=== PATIENT | male | born 1945 | race Caucasian/White ===

== ENCOUNTER → 2016-11-09 11:07 | Outpatient (CLI) | payer MEDICARE, BC ==
[2014-09-09 07:24] VITALS: BMI 38.8
[~2016-11-09 11:07] MED LIST: ASPIRIN325 MG PO; ASPIRIN81 MG PO; BAYER CHEWABLE81 MG PO; BRILINTA90 MG PO; COLACE100 MG PO; COUMADIN10 MG PO; FISH OIL 1,2001 CAP PO; FLOMAX0.4 MG PO; LASIX40 MG PO; LISINOPRIL5 MG PO; MULTIPLE VITAMI1 TA1 PO; MYRBETRIQ25 MG PO; PRILOSEC20 MG PO; ZANTAC150 MG PO; ZYRTEC10 MG PO
== END | disposition home or self-care (01) ==
LOC: D.CT 11:07
DX: R10.9 Unspecified abdominal pain (principal)

== ENCOUNTER 2017-01-09 10:45 | Outpatient (CLI) | payer MEDICARE, BC ==
[~2017-01-09] VITALS: Ht 180.3 cm; Wt 124.5 kg
--- NOTE | ~2017-01-09 | HEMODYNAMI ---
PATIENT:ARMOND MCCAIN MEDICAL RECORD: [id number] : 49 LOCATION:D.CAT ADMISSION DATE: 01/09/17 Generatedon:01/09/201714:10 Patient name: ARMOND MCCAIN Patient #: [id number] SSN: : Date of study: 01/09/2017 Page: Of Hemodynamic Procedure Report Patient Data Patient Demographics Procedure consent was obtained First Name: ARMOND Gender: Male Last Name: ADÁN : 1945 Middle Initial: D Age: 71 year(s) Patient #: [id number] Race: Unknown Additional ID: [id number] Contact details Address: [address] [place] [address] State: [place] City: [place] Zip code: [address] Past Medical History Allergies: No known allergies Admission Admission Data Admission Date: 01/09/2017 Admission Time: 10:45 Lab Results Lab Result Date: 01/09/2017 Lab Result Time: 11:34 Biochemistry Name Units Result Min Max BUN mg/dl 18 --(---*)-- 7 18 Creatinine mg/dl 1.3 --(---*)-- 0.6 1.3 CBC Name Units Result Min Max Hematocrit % 38.3 *-(----)-- 42 54 Hemoglobin g/dl 12.2 *-(----)-- 13.5 17.5 Procedure Procedure Types Cath Procedure Diagnostic Procedure [facility] w/Coronaries PCI Procedure Coronary Stent Initial Miscellaneous Procedures Moderate Sedation up to 30 minutes Procedure Description Procedure Date Procedure Date: 01/09/2017 Procedure Start Time: 13:38 Procedure End Time: 14:07 Procedure Staff Name Function Tere Rajput RN Nurse Estevan Larkin MD Performing Physician Timoteo Brooks RT Monitor Danya Oh RT Monitor Procedure Data Cath Procedure Fluoroscopy Diagnostic fluoroscopy Total fluoroscopy Time: 7.9 time: 7.9 min min Diagnostic fluoroscopy Total fluoroscopy dose: dose: 2013 mGy 2014 mGy Contrast Material Contrast Material Type Amount (ml) Isovue 300 178 Entry Location Entry Primary Successful Side Size Upsize Upsize Entry Closure Diallo ccessful Closure Location (Fr) 1 (Fr) 2 (Fr) Remarks Device Remarks Radial Right 6 Fr Mechanical artery Short Compression Estimated blood loss: 10 ml Diagnostic catheters Device Type Used For End Catheter Placement Terumo 5Fr Trent[place] 110cm LV Angiography catheter Terumo 5Fr [place] 110cm Left Coronary catheter Angiography Terumo 5Fr [place] 110cm Right Coronary catheter Angiography Procedure Complications No complications Procedure Medications Medication Administration Route Dosage Oxygen NC 2 l/min Lidocaine 2% added to field 20 Heparin Flush Bag added to field 2 bags (1000units/500ml NS) 0.9% NaCl I.V. 100 ml/hr Versed I.V. 1 mg Fentanyl I.V. 50 mcg Radial Cocktail I.A. 1 syringe (Verapomil 2mg/Nitro 400mcg/Heparin 1500units) Versed I.V. 1 mg Fentanyl I.V. 50 mcg Heparin Bolus I.V. 35541 units Versed I.V. 1 mg Fentanyl I.V. 50 mcg Nitroglycerin IC/IA I.C. 100 mcg Brilinta P.O. 180 mg Hemodynamics Rest HGB: 12.2 (g/dl) Heart Rate: 51 (bpm) Pressure Samples Time Site Value (mmHg) Purpose Heart Use Rate(bpm) 13:40 LV 128/0,13 EDP 52 13:41 LV 127/1,18 Pullback 58 13:41 AO 109/59(77) Pullback 58 Gradients Valve Time Site 1 Site 2 Mean SEP/DFP Peak To Heart Use (mmHg) (sec/min) Peak Rate (mmHg) (bpm) Aortic 13:41 LV AO 8 5 18 58 127/1,18 109/59(77) Calculations Valve P-P Mean Valve Index Valve Source Name Gradient Area Flow (cm2) Aortic 18 8 18 8 Snapshots Pre Cath Intra NCS Post Cath Vital Signs Time Heart Resp SPO2 NIBP (mmHg) Rhythm Pain Sedation Rate (ipm) (%) Status Level (bpm) 13:31:21 53 16 98 139/61(108) NSR 0 (11) 10(A) , No pain 13:35:43 50 16 96 133/69(101) NSR 0 (11) 10(A) , No pain 13:40:01 54 14 99 111/64(96) NSR 0 (11) 9(A) , No pain 13:45:25 52 16 98 129/62(104) NSR 0 (11) 9(A) , No pain 13:49:49 52 16 98 135/66(100) NSR 0 (11) 9(A) , No pain 13:54:11 57 16 99 127/66(109) NSR 0 (11) 9(A) , No pain 13:59:20 54 17 98 116/68(103) NSR 0 (11) 9(A) , No pain 14:03:36 55 16 98 132/71(104) NSR 0 (11) 10(A) , No pain 14:07:46 53 6 98 116/68(107) NSR 0 (11) 10(A) , No pain Medications Time Medication Route Dose Verified Delivered Reason Note s Effectiveness by by 13:29:47 Oxygen NC 2 l/min Estevan Buffie used for Balta Rajput RN procedure 13:29:54 Lidocaine 2% added 20ml Estevan Estevan used for to vial Balta Larkin MD procedure field 13:30:03 Heparin Flush added 2 bags Estevan Estevan used for Bag to Balta Larkin MD procedure (1000units/500ml field NS) 13:32:08 0.9% NaCl I.V. 100 Estevan Buffie Per physician ml/hr Balta Rajput RN 13:33:16 Versed I.V. 1 mg Estevan Buffie for sedation Balta Rajput RN 13:33:22 Fentanyl I.V. 50 mcg Estevan Buffie for sedation Balta Rajput RN 13:39:29 Radial Cocktail I.A. 1 Estevan Estevan for (Verapomil syringe Balta Larkin MD vasodilation 2mg/Nitro 400mcg/Hepari 13:40:03 Versed I.V. 1 mg Estevan Buffie for sedation Balta Rajput RN 13:40:07 Fentanyl I.V. 50 mcg Estevan Buffie for sedation Balta Rajput RN 13:48:18 Heparin Bolus I.V. 12,000 Estevan Buffie for veri fied units Balta Rajput RN anticoagulation with dr larkin 13:53:25 Versed I.V. 1 mg Estevan Buffie for sedation Balta Rajput RN 13:53:29 Fentanyl I.V. 50 mcg Estevan Carranza for sedation Balta Rajput RN 14:00:06 Nitroglycerin I.C. 100 mcg Estevan Estevan for IC/IA Balta Larkin MD vasodilation 14:07:14 Brilinta P.O. 180 mg Estevan Tere for Balta Rajput RN antiplatelet therapy Procedure Log Time Note 13:08:24 Diagnostic Cath status Elective 13:08:25 Horace Ying RT(R) sent for patient. Start room use. 13:08:26 Time tracking: Regular hours 13:08:29 Plan of Care:Hemodynamics will remain stable., Cardiac rhythm will remain stable., Comfort level will be maintained., Respiratory function will remain adequate., Patient/ family verbilizes understanding of procedure., Procedure tolerated without complication., Recovers from procedure without complications.. 13:09:38 H&P Date Dictated: 01/09/2017 Within 30 days and on chart., H&P Addendum completed by physician on day of procedure. (MUST COMPLETE FOR ALL OUTPATIENTS). 13:15:25 Lab Result : Hemoglobin 12.2 g/dl 13:15:25 Lab Result : Hematocrit 38.3 % 13:15:25 Lab Result : BUN 18 mg/dl 13:15:25 Lab Result : Creatinine 1.3 mg/dl 13:15:31 Warm blankets applied, and ale hugger turned on for patient comfort. 13:15:31 Patient received from Pre/Post Procedure Room to CCL 2 Alert and oriented. Tansferred to table in Supine position. 13:15:32 Correct patient and procedure confirmed by team. 13:15:33 ECG and BP/O2 sat monitors applied to patient. 13:15:34 Signed procedure consent form obtained from patient. 13:15:36 Pre-procedure instructions explained to patient. 13:15:38 Pre-op teaching completed and patient verbalized understanding. 13:15:40 Family in waiting room. 13:15:41 Patient NPO since Midnight. 13:15:47 Patient allergic to No known allergies 13:29:00 Is the patient allergic to Iodine/contrast media? No. 13:29:24 Is patient on blood thinner?No 13:29:42 Patient diabetic? No. 13:29:47 Oxygen 2 l/min NC was administered by Tere Rajput RN; used for procedure; 13:29:54 Lidocaine 2% 20ml vial added to field was administered by Estevan Larkin MD; used for procedure; 13:30:03 Heparin Flush Bag (1000units/500ml NS) 2 bags added to field was administered by Estevan Larkin MD; used for procedure; 13:30:05 Previous problem with sedation/anesthesia? No ? 13:30:08 Vital chart was started 13:30:12 Snore? Yes 13:30:14 Sleep apnea? No 13:30:15 Opens mouth fully? Yes 13:30:15 Deviated septum? No 13:30:16 Sticks out tongue? Yes 13:30:19 Airway obstruction? No ? 13:30:23 Dentures? No ? 13:30:29 Pre procedure: right dorsailis pedis pulse 2+ Normal; easily identifiable; not easily obliterated 13:30:31 Modified Donnell's test Ulnar < 7 seconds 13:30:33 Patient pain scale 0/10 ?. 13:30:37 IV patent on arrival in left hand with 0.9% NaCl at [facility]. 13:30:42 Lab results completed and on chart. 13:30:45 Alarms reviewed by R. N. 13:30:45 Right Radial & Right Groin area was prepped with chlora-prep and draped in sterile fashion 13:30:46 Sharps counted by scrub and verified by R.N. 13:30:52 Use device set Radial Dx 13:30:53 Medline Cath Pack opened to sterile field. 13:30:53 Acist Syringe opened to sterile field. 13:30:54 Terumo 6Fr Slender Glidesheath opened to sterile field. 13:30:54 Bag Decanter opened to sterile field. 13:30:55 Acist Manifold opened to sterile field. 13:30:55 Acist Hand Control opened to sterile field. 13:30:55 St Tyler 260cm J .035 wire opened to sterile field. 13:30:56 MBrace Wrist Support opened to sterile field. 13:30:56 Tegaderm 4 x 4 opened to sterile field. 13:32:08 0.9% NaCl 100 ml/hr I.V. was administered by Tere Rajput RN; Per physician; 13:32:10 Cook 21G 4cm Radial Needle opened to sterile field. 13:32:14 Final Timeout: patient, procedure, and site verified with staff and physician. All members of the team are in agreement. 13:32:16 Right Radial & Right Groin site verified by team. 13:32:18 Physical assessment completed. ASA score P 2 - A patient with mild systemic disease as per Estevan Larkin MD. 13:32:20 Sedation plan: IV Moderate Sedation Versed, Fentanyl 13:32:35 Baseline sample Acquired. 13:33:16 Versed 1 mg I.V. was administered by Tere Rajput RN; for sedation; 13:33:22 Fentanyl 50 mcg I.V. was administered by Tere Rajput RN; for sedation; 13:38:53 Full Disclosure recording started 13:38:53 Procedure started. 13:38:59 Local anesthetic to right radial artery with Lidocaine 2% by Estevan Larkin MD.INITIAL ACCESS ONLY 13:39:07 A 6 Fr Short sheath was inserted into the Right Radial artery 13:39:29 Radial Cocktail (Verapomil 2mg/Nitro 400mcg/Heparin 1500units) 1 syringe I.A. was administered by Estevan Larkin MD; for vasodilation; 13:40:03 Versed 1 mg I.V. was administered by Tere Rajput RN; for sedation; 13:40:07 Fentanyl 50 mcg I.V. was administered by Tere Rajput RN; for sedation; 13:40:21 A Terumo 5Fr Trent[place] 110cm catheter was advanced over the wire and used for LV Angiography. 13:41:03 LV gram done using SIU 13:41:05 LV hemodynamics recorded. 13:41:07 Injector settings: Ml/sec: 5, Volume: 15, 13:41:11 EF : 55 % 13:41:53 A Terumo 5Fr Trent[place] 110cm catheter was advanced over the wire and used for Left Coronary Angiography. 13:44:16 A Terumo 5Fr [place] 110cm catheter was advanced over the wire and used for Right Coronary Angiography. 13:44:54 Catheter removed. 13:44:55 RelayFoods BasixCompak Inflation Kit opened to sterile field. 13:44:56 High Pressure Extension Tubing (Balta) opened to sterile field. 13:44:57 Calles BMW [place] 2 J-tip 300cm 0.014 guide wir opened to sterile field. 13:46:53 Cordis 6FR XBLAD 3.5 guide catheter opened to sterile field. 13:48:18 Heparin Bolus 12,000 units I.V. was administered by Tere Rajput RN; for anticoagulation; verified with dr larkin 13:48:49 6 Fr XBLAD 3.5 guide catheter was inserted over the wire 13:49:35 BMW wire advanced. 13:53:22 Inflation number: 1 A StepOneec Rx 2.0 x 15 balloon was prepped and advanced across the 1st Ob Salome, then inflated to 8 KAMRAN for 0:14 (min:sec). 13:53:25 Versed 1 mg I.V. was administered by Tere Rajput RN; for sedation; 13:53:29 Fentanyl 50 mcg I.V. was administered by Tere Rajput RN; for sedation; 13:54:09 Balloon removed over the wire. 13:57:44 Inflation Number: 2 A [employer] Automationtronic Integrity 2.25 X 12 stent was prepped and advanced across the 1st Ob Salome. The stent was deployed at 10 KAMRAN for 0:21 (min:sec). 13:58:42 Stent catheter was removed intact over wire. 14:00:06 Nitroglycerin IC/IA 100 mcg I.C. was administered by Estevan Larkin MD; for vasodilation; 14:01:12 Guide catheter removed. 14:01:12 Wire removed. 14:01:53 Sheath removed intact; hemostasis achieved with Mechanical Compression to the Right Radial artery. 14:02:00 Procedure ended.(Physican Out) 14:02:51 Fluoroscopy time 07.90 minutes. 14:02:55 Fluoroscopy dose: 2013 mGy 14:02:55 Flurop Dose total: 2013 14:03:27 Contrast amount:Isovue 300 178ml. 14:03:28 Sharps counted by scrub and verified by R.N. 14:03:33 TR band inflated with 13cc of air. 14:03:34 Insertion/operative site no bleeding no hematoma. 14:03:42 Post right radial artery:stable, clean and dry 14:03:43 Post Procedure Pulses reassessed and unchanged 14:03:48 Post-procedure physical assessment completed. ASA score P 2 - A patient with mild systemic disease as per Estevan Larkin MD. 14:03:51 Post procedure rhythm: unchanged. 14:03:53 Estimated blood loss: 10 ml 14:03:54 Post procedure instruction explained to patient.Patient verbalizes understanding. 14:03:55 Patient needs reinforcement of post procedure teaching. 14:04:10 Procedure type changed to Cath procedure, Diagnostic procedure, LHC, LHC w/Coronaries, PCI procedure, Coronary Stent Initial, Miscellaneous Procedures, Moderate Sedation up to 30 minutes 14:04:17 Procedure Complication : No complications 14:04:18 See physician's report for complete and final results. 14:04:44 Terumo TR Band Standard opened to sterile field. 14:05:50 Procedure and supply charges have been captured, reviewed, submitted and are correct. 14:07:14 Brilinta 180 mg P.O. was administered by Tere Rajput RN; for antiplatelet therapy; 14:07:25 Vital chart was stopped 14:07:27 Report given to Pre/Post Procedure Room. 14:07:30 Patient transfered to Pre/Post Procedure Room with Stretcher. 14:07:38 Full Disclosure recording stopped 14:07:38 Procedure ended. 14:07:43 End room use (Document Last) Intervention Summary Intervention Notes Time ActionType Lesion and Equipment Action# Pressure Duration Attributes Used 13:53:22 Inflate 1st Ob [facility] Mozec Rx 1 8 00:14 balloon 2.0 x 15 balloon 13:57:44 Place stent 1st Ob [facility] Medtronic 2 10 00:21 Integrity 2.25 X 12 stent Device Usage Item Name Manufacture Quantity Catalog Hospital Part Current Minimal Lot# / Number Charge Number Stock Stock Serial# Code Acist Acist 1 75713 [id number] 379711 613339 20 Syringe Medical Systems Inc Medline Cardinal 1 [id number] 698713 96583 805793 5 Cath Pack Health Bag Microtek 1 2001S 552646 95773 151576 5 LLLer Inc. Terumo 6Fr Terumo 1 [id number] 480557 612911 032139 [address] [place] [address] [place] 1 311869 395235 235158 123729 30 260cm J .035 wire Acist Hand Acist 1 16913 432057 677655 472164 5 Control Medical Systems Inc Acist Acist 1 31545 972640 585012 658050 5 Green Is Good Medical Systems Inc Tegaderm 4 3M 1 1626W 578682 412528 486462 5 x 4 MBrace Advanced 1 140-0250-00 813869 08821 680228 5 Wrist Vascular Support Dynamics Cook 21G Cook Medical 1 [id number] 837797 908543 510706 5 4cm Radial Needle Terumo 5Fr Terumo 1 40-0029 461634 753527 527384 5 [place] 110cm catheter Merit Merit 1 [id number] 571708 308458 725917 15 BasixCompak Medical Inflation Kit High Merit 1 [id number] 480745 48237 608309 10 Pressure Medical Extension Tubing (Larkin) Calles BMW Calles 1 [id number] 468835 086154 192176 5 [place] 2 Vascular J-tip 300cm 0.014 guide wir Cordis 6FR Cardinal 1 [id number] 297011 767970 484251 10 XBLAD 3.5 Health guide catheter Mozec Rx Cardinal 1 [id number] 405594 71663 547007 5 UMOA67 2.0 x 15 Health balloon Medtronic Medtronic 1 [id number] 708704 537816 2 [id number] Integrity 2.25 X 12 stent Terumo TR Terumo 1 [id number] 431214 754147 409014 40 Band Standard Signature Audit Taylor Stage Time Signature Unsigned Intra-Procedure 01/09/2017 Danya 2:10:05 PM Counts RT(R) Signatures Monitor : Timoteo Brokos RT Signature : Date : Time : Monitor : Danya Signature : Counts RT Date : Time : [facility] [address] [place] [address]
[2017-01-09 11:37] VITALS: BP 124/63; Ht 180.3 cm; Wt 124.5 kg
[2017-01-09 11:38] LABS: BASOPHILS 0.3 % (0-2); EOSINOPHILS 4.8 % (0-7); HEMATOCRIT 38.3 % (42.0-54.0); HEMOGLOBIN 12.2 g/dL (13.5-17.5); IMMATURE GRANULOCYTES 0.3 % (0-5); LYMPHOCYTES 27.1 % (15-50); MCH 24.1 pg (26.0-34.0); MCHC 31.9 g/dL (31.0-37.0); MCV 75.5 fL (80.0-100.0); MEAN PLATELET VOLUME 8.9 fL (7.4-10.4); MONOCYTES 8.7 % (2-11); NEUTROPHILS 58.8 % (40-80); PLATELET COUNT 214 10x3/uL (130-400); RBC 5.07 10x6/uL (4.20-6.10); RDW 16.8 % (11.5-14.5)
[2017-01-09 11:47] LABS: ANION GAP 10.6 mmol/L (8-16); CALCIUM 9.1 mg/dL (8.5-10.1); CREATININE - SERUM 1.3 mg/dL (0.6-1.3); INR 1.02 (0.85-1.17); POTASSIUM - SERUM 3.6 mmol/L (3.5-5.1); PROTIME 13.3 SECONDS (11.6-15.0)
[2017-01-09] MEDS ORDERED: ZIAC 10-6.25 MG1 TAB PO (11:49)
[2017-01-09] MEDS ORDERED: BRILINTA90 MG PO (14:24)
--- NOTE | 2017-01-09 14:35 | NUR ---
2L NC, NO RESP DISTRESS NOTED. RIGHT WRIST TR BAND CDI, NO BLEEDING OR HEMATOMA NOTED. NO C/O CHEST PAIN OR NAUSEA. VSS. SANDWICH TRAY AND DRINK GIVEN.
--- NOTE | 2017-01-09 15:05 | NUR ---
2L NC, NO RESP DISTRESS NOTED. RIGHT WRIST TR BAND CDI, NO BLEEDING OR HEMATOMA NOTED. NO C/O CHEST PAIN OR NAUSEA. VSS. WILL CONTINUE TO MONITOR.
--- NOTE | 2017-01-09 15:20 | NUR ---
RIGHT WRIST TR BAND CDI, NO BLEEDING OR HEMATOMA NOTED. 2L NC, NO RESP DISTRESS. NO C/O CHEST PAIN. VSS. CALL LIGHT WITHIN REACH.
--- NOTE | 2017-01-09 15:50 | NUR ---
RIGHT WRIST TR BAND CDI, NO BLEEDING OR HEMATOMA NOTED. 2L NC, NO RESP DISTRESS NOTED. VSS. NO NEEDS VOICED AT THIS TIME. WILL CONTINUE TO MONITOR.
--- NOTE | 2017-01-09 16:20 | NUR ---
RESTING QUIETLY. DENIES ANY NEEDS. VSS. RIGHT WRIST TR BAND CDI, NO BLEEDING OR HEMATOMA NOTED. CALL LIGHT WITHIN REACH.
--- NOTE | 2017-01-09 17:30 | NUR ---
2CC OF AIR REMOVED FROM TR BAND, NO BLEEDING NOTED.
--- NOTE | 2017-01-09 17:43 | NUR ---
3CC OF AIR REMOVED FROM TR BAND, NO BLEEDING NOTED.
--- NOTE | 2017-01-09 18:01 | NUR ---
3CC OF AIR REMOVED FROM TR BAND, NO BLEEDING NOTED.
--- NOTE | 2017-01-09 18:24 | NUR ---
2CC OF AIR REMOVED FROM TR BAND, NO BLEEDING NOTED. LEFT WRIST PIV D/C'D WITH CATHETER INTACT, BAND AID INTACT. UP TO BEDSIDE TO GET DRESSED.
--- NOTE | 2017-01-09 18:30 | NUR ---
REMAINING AIR REMOVED FROM TR BAND, DRESSING TO SITE. DISCHARGE INSTRUCTIONS GIVEN, VERBALIZED UNDERSTANDING.
--- NOTE | 2017-01-09 18:42 | NUR ---
TAKEN OUT VIA WHEELCHAIR BY CATH ORNAMENTAL IRON WORKER APPRENTICE. LEFT FACILITY WITH FAMILY MEMBER AND ALL PERSONAL BELONGINGS.
== END 2017-01-09 18:42 | disposition home or self-care (01) ==
LOC: D.CATH 10:45
PROVIDERS: Internal Medicine Cardiovascular Disease
DX: I25.119 Atherosclerotic heart disease of native coronary artery with unspecified angina pectoris (principal); Z95.5 Presence of coronary angioplasty implant and graft; I10 Essential (primary) hypertension; Z86.73 Personal history of transient ischemic attack (TIA), and cerebral infarction without residual deficits; Z85.46 Personal history of malignant neoplasm of prostate; Z79.82 Long term (current) use of aspirin; Z79.01 Long term (current) use of anticoagulants; Z79.899 Other long term (current) drug therapy; Z87.891 Personal history of nicotine dependence; Z01.812 Encounter for preprocedural laboratory examination

== ENCOUNTER → 2017-10-28 09:20 | Outpatient (CLI) | payer MEDICARE, BC ==
[2017-01-09 11:37] VITALS: BMI 38.3
[~2017-10-28 09:20] MED LIST changes: +ASPIRIN EC325 M1 PO; -ASPIRIN81 MG PO; +FERROUS SULFAT325 MG PO; +REQUIP1 MG PO; +ZIAC 10-6.25 MG1 TAB PO
[2017-10-28 09:48] LABS: BASOPHILS 0.8 % (0-2); HEMATOCRIT 36.9 % (42.0-54.0); HEMOGLOBIN 10.7 g/dL (13.5-17.5); IMMATURE GRANULOCYTES 0.2 % (0-5); LYMPHOCYTES 24.8 % (15-50); MCH 21.1 pg (26.0-34.0); MCV 72.8 fL (80.0-100.0); MONOCYTES 8.6 % (2-11); NEUTROPHILS 62.6 % (40-80); PLATELET COUNT 157 10x3/uL (130-400); RBC 5.07 10x6/uL (4.20-6.10); RDW 25.3 % (11.5-14.5)
== END | disposition home or self-care (01) ==
LOC: D.LAB 09:20
PROVIDERS: Internal Medicine Gastroenterology
DX: D50.9 Iron deficiency anemia, unspecified (principal)

== ENCOUNTER 2017-11-13 10:21 | Day surgery (SDC) | payer MEDICARE, BC ==
[~2017-11-13] VITALS: Ht 180.3 cm; Wt 134.5 kg
--- NOTE | ~2017-11-13 | OP ---
PATIENT NAME: ARMOND MCCAIN MEDICAL RECORD: [id number] :49 [facility] DATE: SURGEON: SHAGGY BENITEZ DO DATE OF OPERATION: 11/13/2017 PROCEDURE: Colonoscopy with polypectomy. INDICATION FOR PROCEDURE: Iron-deficiency anemia. SCOPE: Olympus video pediatric colonoscope. MEDICATIONS: Propofol 300 mg IV per anesthesia. WITHDRAWAL TIME: 11 minutes. ESTIMATED BLOOD LOSS: Minimal. COMPLICATIONS: None. FINDINGS: Informed consent was given. The patient was made comfortable with the above medication. After reaching an adequate level of sedation by slow IV push, the patient was placed on his left side. A digital rectal examination was performed and was normal. The endoscope was then advanced under direct visualization through the rectum to the cecum, confirmed by the presence of the appendiceal orifice and the ileocecal valve. The endoscope was slowly withdrawn and the mucosa was carefully examined. The prep quality was fair. There were 3 polyps visualized on today's examination. They were all benign appearing, sessile, and ranged in size from 4-6 mm in diameter. They were all removed using hot forceps completely as well as fulgurated during removal. One was located in the cecum, one was located in the transverse colon, and one was located in the descending colon. Retroflexion was performed in the rectum with visualization of grade I, small, nonbleeding internal hemorrhoids. The endoscope was then withdrawn from the patient. The patient tolerated the procedure well and there were no complications. IMPRESSION: 1. Three polyps as described above, removed using hot forceps. 2. Small nonbleeding internal hemorrhoids, which could just be prep related. PLAN AND RECOMMENDATIONS: 1. Discharge home when recovery parameters are met. 2. Followup biopsy specimen results. 3. Recommend upper endoscopy regarding the anemia. 4. Continue current diet and medications. 5. Recall colonoscopy in 2-3 years for surveillance of polyps. TRANSINT:[id number] Voice Confirmation ID: [id number] DOCUMENT ID: [id number] OPERATIVE REPORT [id number] ARMOND MCCAIN SHAGGY BENITEZ DO at 1321 CC: [id number] DICTATION DATE: 11/13/17 1356 [employer] BINDER OPERATOR: 11/13/17 1554 [facility] 11/13/[address] [address]
[~2017-11-13 10:21] MED LIST changes: -FERROUS SULFAT325 MG PO; -REQUIP1 MG PO
[2017-11-13] MEDS ORDERED: REQUIP1 MG PO (11:00)
[2017-11-13] MEDS ORDERED: FERROUS SULFAT325 MG PO (11:00)
[2017-11-13 11:41] VITALS: Ht 180.3 cm; Wt 134.5 kg
[2017-11-13 11:51] LABS: HEMATOCRIT 38.5 % (42.0-54.0); HEMOGLOBIN 11.6 g/dL (13.5-17.5); MCH 23.1 pg (26.0-34.0); MCHC 30.1 g/dL (31.0-37.0); MCV 76.7 fL (80.0-100.0); MEAN PLATELET VOLUME 8.8 fL (7.4-10.4); RBC 5.02 10x6/uL (4.20-6.10); RDW 26.5 % (11.5-14.5)
[2017-11-13 11:57] LABS: APTT 26.4 SECONDS (22.8-39.4); INR 1.07 (0.85-1.17); PROTIME 13.5 SECONDS (11.6-15.0)
[2017-11-13 12:09] LABS: ANION GAP 15.6 mmol/L (8-16); CALCIUM 8.5 mg/dL (8.5-10.1); CARBON DIOXIDE 22.9 mmol/L (21.0-32.0); CREATININE - SERUM 1.1 mg/dL (0.6-1.3); POTASSIUM - SERUM 3.5 mmol/L (3.5-5.1)
== END 2017-11-13 15:05 | disposition home or self-care (01) ==
LOC: D.OPS 10:21
PROVIDERS: Anesthesiology
DX: D12.0 Benign neoplasm of cecum (principal); D12.4 Benign neoplasm of descending colon; D12.3 Benign neoplasm of transverse colon; K64.0 First degree hemorrhoids; D50.9 Iron deficiency anemia, unspecified; Z01.812 Encounter for preprocedural laboratory examination

== ENCOUNTER 2017-12-04 09:55 | Day surgery (SDC) | payer MEDICARE, BC ==
[~2017-12-04] VITALS: Ht 180.3 cm; Wt 129.5 kg
--- NOTE | ~2017-12-04 | OP ---
PATIENT NAME: ARMOND MCCAIN MEDICAL RECORD: [id number] :49 [facility] DATE: SURGEON: SHAGGY BENITEZ DO DATE OF OPERATION: 12/04/2017 PROCEDURE: EGD with balloon dilation and biopsies. INDICATIONS FOR PROCEDURE: Iron-deficiency anemia. SCOPE: Olympus video gastroscope. MEDICATIONS: Propofol 180 mg IV per anesthesia. ESTIMATED BLOOD LOSS: Minimal. COMPLICATIONS: None. FINDINGS: Informed consent was given. The patient was made comfortable with the above medication. After reaching an adequate level of sedation by slow IV push, the patient was placed on his left side. The endoscope was advanced under direct visualization through the mouth, to the second portion of the duodenum. The upper, middle, and lower thirds of the esophagus appeared normal. At the GE junction, there was minimal esophagitis, but there was a Schatzki's ring, which did not appear to be too constricting. The ring was traversed prior to dilation, but was dilated up to 20-mm maximum diameter using a CRE balloon. The endoscope was advanced beyond the GE junction into the stomach and retroflexed to view the cardia, where a small sliding hiatal hernia was present. Throughout the entire stomach, there were patchy areas of erythema and atrophic-appearing mucosa. Random biopsies were taken to submit for histology and to rule out the presence of H. pylori. The endoscope was advanced beyond the pylorus into the duodenum. The mucosa of the duodenum appeared normal, but random biopsies were taken based on his history of anemia. There was a moderately large diverticulum located in the first portion of the duodenum. The endoscope was withdrawn from the patient. The patient tolerated the procedure well and there were no complications. IMPRESSION: 1. Mild Schatzki's ring at the gastroesophageal junction, dilated to 20-mm. 2. Small sliding hiatal hernia. 3. Gastritis by endoscopic appearance characterized by erythema and atrophic mucosa. 4. 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 PLAN AND RECOMMENDATIONS: 1. Discharge home when recovery parameters are met. 2. Follow up biopsy specimen results. 3. Follow a GERD diet and reflux precautions. 4. Pantoprazole 40 mg daily, times 60 days, then discontinue medicine. 5. Regarding the anemia, consider referral for a video capsule endoscopy to evaluate the small intestine as no etiology has been found as of yet on the upper and lower endoscopy for his iron-deficiency anemia. 6. Regarding his regurgitation of food, we will order an upper GI to evaluate this. May need to consider a gastric emptying scan to make sure the stomach is emptying like it should. OPERATIVE REPORT [id number] ARMOND MCCAIN TRANSINT:[id number] Voice Confirmation ID: [id number] DOCUMENT ID: [id number] SHAGGY BENITEZ DO at 1255 CC: [id number] DICTATION DATE: 12/04/17 1309 WAREHOUSE STOCKER: 12/04/17 1333 [facility] 12/04/17 [facility] [address] [place] [address]
[~2017-12-04 09:55] MED LIST changes: +FERROUS SULFAT325 MG PO; +REQUIP1 MG PO
[2017-12-04 10:21] LABS: BASOPHILS 0.7 % (0-2); HEMATOCRIT 42.1 % (42.0-54.0); HEMOGLOBIN 13.3 g/dL (13.5-17.5); IMMATURE GRANULOCYTES 0.2 % (0-5); LYMPHOCYTES 29.1 % (15-50); MCH 25.1 pg (26.0-34.0); MCHC 31.6 g/dL (31.0-37.0); MCV 79.6 fL (80.0-100.0); MONOCYTES 9.4 % (2-11); NEUTROPHILS 55.6 % (40-80); PLATELET COUNT 177 10x3/uL (130-400); RBC 5.29 10x6/uL (4.20-6.10); RDW 23.6 % (11.5-14.5)
[2017-12-04 10:29] LABS: ANION GAP 9.5 mmol/L (8-16); CALCIUM 8.6 mg/dL (8.5-10.1); CARBON DIOXIDE 30.7 mmol/L (21.0-32.0); CREATININE - SERUM 1.2 mg/dL (0.6-1.3); POTASSIUM - SERUM 4.2 mmol/L (3.5-5.1)
[2017-12-04 10:30] LABS: APTT 27.6 SECONDS (22.8-39.4); INR 1.05 (0.85-1.17); PROTIME 13.3 SECONDS (11.6-15.0)
[2017-12-04 11:39] VITALS: BP 145/66; Ht 180.3 cm; Wt 129.5 kg
== END 2017-12-04 14:20 | disposition home or self-care (01) ==
LOC: D.OPS 09:55
PROVIDERS: Anesthesiology
DX: K22.2 Esophageal obstruction (principal); K44.9 Diaphragmatic hernia without obstruction or gangrene; K29.50 Unspecified chronic gastritis without bleeding; K57.10 Diverticulosis of small intestine without perforation or abscess without bleeding; K29.80 Duodenitis without bleeding; D50.9 Iron deficiency anemia, unspecified; Z01.812 Encounter for preprocedural laboratory examination

== ENCOUNTER → 2017-12-06 09:57 | Outpatient (CLI) | payer MEDICARE, BC ==
[2017-12-04 11:39] VITALS: BMI 39.8
== END | disposition home or self-care (01) ==
LOC: D.RAD 09:57
DX: K44.9 Diaphragmatic hernia without obstruction or gangrene (principal); K57.12 Diverticulitis of small intestine without perforation or abscess without bleeding; K21.9 Gastro-esophageal reflux disease without esophagitis

== ENCOUNTER → 2017-12-11 14:36 | Outpatient (CLI) | payer MEDICARE, BC ==
[2017-12-04 11:39] VITALS: BMI 39.8
== END | disposition home or self-care (01) ==
LOC: D.NM 14:36
DX: K21.9 Gastro-esophageal reflux disease without esophagitis (principal)

== ENCOUNTER → 2019-02-27 13:38 | Outpatient (CLI) | payer MEDICARE, BC ==
[2017-12-04 11:39] VITALS: BMI 39.8
== END | disposition home or self-care (01) ==
LOC: D.HCCECHO 13:38 → D.HCCARDIO 14:00 → D.HCCECHO 14:00
PROVIDERS: ATTEND Internal Medicine Cardiovascular Disease
DX: I34.0 Nonrheumatic mitral (valve) insufficiency (principal)

== ENCOUNTER → 2020-01-20 08:16 | Outpatient (CLI) | payer MEDICARE, BC ==
[2017-12-04 11:39] VITALS: BMI 39.8
== END | disposition home or self-care (01) ==
LOC: D.HCCARDIO 08:16
PROVIDERS: ATTEND Internal Medicine Cardiovascular Disease
DX: I25.10 Atherosclerotic heart disease of native coronary artery without angina pectoris (principal)

== ENCOUNTER 2020-08-15 11:24 | Day surgery (SDC) | payer MEDICARE, BC ==
[~2020-08-15] VITALS: Ht 180.3 cm; Wt 129.1 kg
--- NOTE | ~2020-08-15 | HEMODYNAMI ---
PATIENT:ARMOND MCCAIN MEDICAL RECORD: [id number] : 49 LOCATION:[facility] ADMISSION DATE: 08/15/20 Generatedon:113:09 Patient name: ARMOND MCCAIN Patient #: [id number] SSN: : 1945 Date of study: 08/15/2020 Page: Of Hemodynamic Procedure Report Patient Data Patient Demographics Procedure consent was obtained First Name: ARMOND Gender: Male Last Name: ADÁN : 1945 Middle Initial: D Age: 74 year(s) Patient #: [id number] Race: Unknown Additional ID: [id number] Contact details [address]: [address] [place] [address] State: [place] City: [place] Zip code: [address] Past Medical History Allergies: No allergy information Admission Admission Data Admission Date: 08/15/2020 Admission Time: 11:24 Lab Results Lab Result Date: 08/15/2020 Lab Result Time: 0:00 Biochemistry Name Units Result Min Max BUN mg/dl 18 --(---*)-- 7 18 Creatinine mg/dl 1.2 --(---*)-- 0.6 1.3 CBC Name Units Result Min Max Hematocrit % 45.6 --(-*--)-- 42 54 Hemoglobin g/dl 15.2 --(-*--)-- 13.5 17.5 Procedure Procedure Types Cath Procedure Diagnostic Procedure Cardioversion External Procedure Description Procedure Date Procedure Date: 08/15/2020 Procedure Start Time: 13:01 Procedure End Time: 13:08 Procedure Staff Name Function Estevan Gifford MD Performing Physician Jewels Tellez RT Monitor Tere Rajput RN Nurse Sumanth Chavarria MD Additional personnel Procedure Data Cath Procedure Fluoroscopy Diagnostic fluoroscopy Total fluoroscopy Time: 0 time: 0 min min Diagnostic fluoroscopy Total fluoroscopy dose: 0 dose: 0 mGy mGy Estimated blood loss: 0 ml Procedure Complications No complications Procedure Medications Medication Administration Route Dosage Oxygen etCO2 Nasal cannula 2 l/min Refer to Anesthesia Notes for Sedation Medications Hemodynamics Rest HGB: 15.2 (g/dl) Heart Rate: 58 (bpm) Snapshots Pre Cath Intra NCS Post Cath Vital Signs Time Heart Resp SPO2 etCO2 NIBP (mmHg) Rhythm Pain Sedation Rate (ipm) (%) (mmHg) Status Level (bpm) 12:56:22 74 16 100 34.4 156/85(121) A-Flutter (Missing) 10(A) 13:00:34 70 17 99 35.9 149/94(130) A-Flutter (Missing) 9(A) 13:04:56 61 10 93 0 129/77(89) NSR (Missing) 9(A) 13:07:46 62 16 94 38.1 118/59(90) NSR (Missing) 10(A) Medications Time Medication Route Dose Verified Delivered Reason Notes Effective ness by by 12:55:21 Oxygen etCO2 2 Estevan Buffie used for Nasal l/min Balta Rajput sped teacher cannula 12:55:37 Refer to Estevan Buffie Anesthesia Balta Rajput RN Notes for Sedation Medications Procedure Log Time Note 12:43:43 Informed consent obtained and on chart 12:44:13 Procedure Status Cardioversion. 12:44:14 Time tracking: Regular hours (M-F 7:00 - 5:00) 12:44:19 Plan of Care:Hemodynamics will remain stable., Cardiac rhythm will remain stable., Comfort level will be maintained., Respiratory function will remain adequate., Patient/ family verbilizes understanding of procedure., Procedure tolerated without complication., Recovers from procedure without complications.. 12:44:25 H&P Date Dictated: 07/27/2020 Within 30 days and on chart., H&P Addendum completed by physician on day of procedure. (MUST COMPLETE FOR ALL OUTPATIENTS). 12:44:31 Patient allergic to No allergy information 12:44:47 Jewels Tellez RT(R) sent for patient. Start room use. 12:51:12 Patient arrived from Pre/Post Procedure Room to CCL 3. Patient remains on bed/stretcher for procedure. 12:51:13 Warm blankets applied, and ale hugger turned on for patient comfort. 12:51:14 Correct patient and procedure confirmed by team. 12:51:14 ECG and BP/O2 sat monitors applied to patient. 12:55:08 Vital chart was started 12:55:21 Oxygen 2 l/min etCO2 Nasal cannula was administered by Tere Rajput RN; used for procedure; Verbal order read back and verified. 12:55:24 Baseline sample Acquired. 12:55:29 Rhythm: atrial flutter 12:55:37 Refer to Anesthesia Notes for Sedation Medications was administered by Tere Rajput RN; ; Verbal order read back and verified. 12:55:38 JORDAN BROOKS present and monitoring patient for TIVA. 12:55:48 Full Disclosure recording started 12:55:50 Pre-procedure instructions explained to patient. 12:55:50 Pre-op teaching completed and patient verbalized understanding. 12:55:51 Family in patients room. 12:55:52 Patient NPO since Midnight. 12:55:54 Is the patient allergic to Iodine/contrast media? No. 12:55:55 Is patient on blood thinner?Yes 12:55:58 ACC The patient was administered the following blood thiners within the last 24 hours: Coumadin 12:56:00 Patient diabetic? No. 12:56:02 Previous problem with sedation/anesthesia? No ? 12:56:03 Snore? Yes 12:56:05 Sleep apnea? Yes 12:56:08 Deviated septum? No 12:56:09 Opens mouth fully? Yes 12:56:11 Sticks out tongue? Yes 12:56:13 Airway obstruction? No ? 12:56:35 Dentures? No ? 12:57:21 IV patent on arrival in right hand with 0.9% NaCl at [facility]. 12:57:24 Lab results completed and on chart. 12:57:26 Alarms reviewed by Bruna Desai 12:57:36 Quick Combo opened to sterile field. 12:58:37 Lab Result : BUN 18 mg/dl 12:58:37 Lab Result : Creatinine 1.2 mg/dl 12:58:37 Lab Result : Hemoglobin 15.2 g/dl 12:58:37 Lab Result : Hematocrit 45.6 % 13:00:27 --------ALL STOP TIME OUT------ 13:00:28 Final Timeout: patient, procedure, and site verified with staff and physician. All members of the team are in agreement. 13:00:32 Fire Safety Assessment: C--Open oxygen or nitrous oxide is being used. 13:00:35 Physical assessment completed. ASA score P 2 - A patient with mild systemic disease as per Estevan Gifford MD. 13:00:38 Sedation plan: TIVA Medication:Propofol 13:01:34 Procedure started. 13:01:47 ------Cardioversion------ 13:01:48 Quick combo pads placed on patients chest and back. 13:02:55 Defibrillator synced and charged to 100 Joules. 13:03:01 Shock delivered. 13:03:45 Unsuccessful cardioversion. 13:03:48 Defibrillator synced and charged to 200 Joules. 13:03:59 Shock delivered. 13:04:23 Patient cardioverted to sinus bradycardia. 13:04:50 Procedure ended.(Physican Out) 13:05:12 Fluoroscopy time 00.00 minutes. 13:05:13 Fluoroscopy dose: 0 mGy 13:05:13 Flurop Dose total: 0 13:05:15 Dose Area Product 0 mGy/cm. 13:05:29 Post-procedure physical assessment completed. ASA score P 2 - A patient with mild systemic disease as per Estevan Gifford MD. 13:05:35 Post procedure rhythm: sinus bradycardia 13:05:36 Estimated blood loss: 0 ml 13:05:37 Post procedure instruction explained to patient.Patient verbalizes understanding. 13:05:38 Patient needs reinforcement of post procedure teaching. 13:05:52 Procedure and supply charges have been captured, reviewed, submitted and are correct. 13:05:54 Procedure Complication : No complications 13:05:58 Operative report dictated upon procedure completion. 13:05:58 See physician's report for complete and final results. 13:08:14 Vital chart was stopped 13:08:16 Report given to Pre/Post Procedure Room. 13:08:19 Patient transfered to Pre/Post Procedure Room with Bed. 13:08:21 Procedure ended. 13:08:21 Full Disclosure recording stopped 13:08:23 End room use (Document Last) 13:08:44 End room use (Document Last) 13:09:14 End room use (Document Last) Device Usage Item Manufacture Quantity Catalog Hospital Part Current Minimal Lot# / Name Number Charge Number Stock Stock Mike fl# Code Parts Town 1 [id number] Combo Signature Audit [place] Stage Time Signature Unsigned Intra-Procedure 08/15/2020 Jewels Tellez 1:08:44 PM RT(R) Intra-Procedure 08/15/2020 Tere Rajput RN 1:09:14 PM Intra-Procedure 08/15/2020 Estevan Gifford MD 1:09:35 PM [facility] [address] [place] [address]
[2020-08-15] MEDS ORDERED: PROTONIX40 MG PO (11:42)
[2020-08-15] MEDS ORDERED: LASIX20 MG PO (11:42)
[2020-08-15] MEDS ORDERED: DITROPAN XL 1010 MG PO (11:43)
[2020-08-15] MEDS ORDERED: BETAPACE 80 MG80 MG PO (11:43)
[2020-08-15] MEDS ORDERED: WARFARIN SODIUM5 MG PO (11:44)
[2020-08-15] MEDS ORDERED: ZYLOPRIM100 MG PO (11:44)
[2020-08-15] MEDS ORDERED: LEVOTHYROXINE50 MCG PO (11:45)
[2020-08-15 11:59] VITALS: BP 163/87; Ht 180.3 cm; Wt 129.1 kg
[2020-08-15 12:19] LABS: BASOPHILS 0.5 % (0-2); EOSINOPHILS 4.2 % (0-7); HEMATOCRIT 45.6 % (42.0-54.0); HEMOGLOBIN 15.2 g/dL (13.5-17.5); IMMATURE GRANULOCYTES 0.2 % (0-5); LYMPHOCYTE ABS# 1.48 10x3/uL (1.32-3.57); MCH 28.5 pg (26.0-34.0); MCHC 33.3 g/dL (31.0-37.0); MCV 85.6 fL (80.0-100.0); MEAN PLATELET VOLUME 9.3 fL (7.4-10.4); MONOCYTES 11.1 % (2-11); NEUTROPHIL ABS# 3.13 10x3/uL (1.78-5.38); PLATELET COUNT 158 10x3/uL (130-400); RBC 5.33 10x6/uL (4.20-6.10); RDW 14.7 % (11.5-14.5); WBC 5.5 10x3/uL (4.8-10.8)
[2020-08-15 12:23] LABS: ANION GAP 15.6 mmol/L (8-16); CALCIUM 8.5 mg/dL (8.5-10.1); CARBON DIOXIDE 25.5 mmol/L (21.0-32.0); CREATININE - SERUM 1.2 mg/dL (0.6-1.3); POTASSIUM - SERUM 4.1 mmol/L (3.5-5.1)
--- NOTE | 2020-08-15 13:12 | NUR ---
PT REC'D TO AERIAL [facility]AYER RECOVERY ROOM 5 VIA STRETCHER, MONITORS ESTAB. AT BS. SEE POST CARDIOVERSION BARREL LOADER AND CLEANER. ALARMS ON AND C/L IN REACH.
[2020-08-15 13:17] LABS: INR 2.45 (0.85-1.17); PROTIME 24.7 SECONDS (11.6-15.0)
--- NOTE | 2020-08-15 13:25 | NUR ---
CM - NSR, HR 63, NO ECTOPY NOTED. VSS. PT DROWSY. DENIES NEEDS. ALARMS ON AND C/L IN REACH.
--- NOTE | 2020-08-15 13:40 | NUR ---
HOB UP, SANDWICH TRAY PROVIDED. VSS. CM - NSR, NO ECTOPY NOTED. AT BS. ALARMS ON AND C/L IN REACH.
--- NOTE | 2020-08-15 14:10 | NUR ---
DR. RIVAS IN TO SEE PT, UPDATE GIVEN AND QUESTIONS ANSWERED
--- NOTE | 2020-08-15 14:15 | NUR ---
PIV D/C'D INTACT, DSG APPLIED. PT ALLOWED UP TO GET DRESSED AND GO TO BR INDEPENDENTLY.
--- NOTE | 2020-08-15 14:20 | NUR ---
ALL DISCHARGE INSTRUCTIONS REVIEWED WITH PT AND , INCLUDING RESTRICTIONS, MEDS AND F/U APPT - BOTH VERBALIZE UNDERSTANDING.
--- NOTE | 2020-08-15 14:25 | NUR ---
PT D/C'D TO PRIVATE VEHICLE WITH ALL PAPERWORK AND BELONGINGS.
== END 2020-08-15 14:25 | disposition home or self-care (01) ==
LOC: D.CATH 11:24
PROVIDERS: ATTEND Internal Medicine Cardiovascular Disease
DX: I48.92 Unspecified atrial flutter (principal); I48.0 Paroxysmal atrial fibrillation; I25.10 Atherosclerotic heart disease of native coronary artery without angina pectoris